=== PATIENT | female | born 1975 | race Caucasian/White ===

== ENCOUNTER 2017-06-04 10:51 | Emergency (ER) | payer MEDICARE ==
[~2017-06-04] VITALS: Ht 170.2 cm; Wt 84.4 kg
[2017-06-04 10:52] VITALS: BP_SYST 156
--- NOTE | 2017-06-04 11:10 | NUR ---
BROUGHT BACK TO [facility] AND REPORT GIVEN TO RIDDHI
--- NOTE | 2017-06-04 11:27 | NUR ---
Pt complains of anxiety and panic attacks, pt states that she has had anxiety for many years but this December it started getting worse and she started to have panic attacks. Pt states that she went to [place] to get treatment with her son, came back in April and has been trying to get on medi-[facility] to get medications. Pt states that she has chronic back pain that radiates to the her right leg. No other injuries/complaints per pt or noted.
--- NOTE | 2017-06-04 11:34 | NUR ---
ER at bedside examining patient.
--- NOTE | 2017-06-04 11:45 | NUR ---
Patient given written and verbal discharge instructions and verbalizes understanding. ER MD discussed with patient the results and treatment provided. Patient in stable condition. ID arm band removed. Rx of ativan and percocet given. Patient educated on pain management and to follow up with PMD. Pain Scale 3. Opportunity for questions provided and answered.
[2017-06-04 11:48] VITALS: BP_SYST 150
== END 2017-06-04 11:48 | disposition home or self-care (01) ==
LOC: EDBD 10:51 → SED 10:51
DX: Z76.0 Encounter for issue of repeat prescription (principal); F41.9 Anxiety disorder, unspecified; F31.9 Bipolar disorder, unspecified
CPT/HCPCS: 99283